=== PATIENT | male | born 1955 | race Caucasian/White ===

== ENCOUNTER 2018-08-01 09:58 | Emergency (ER) | payer OTHER, MEDICAID ==
[~2018-08-01] VITALS: Ht 154.9 cm; Wt 95.0 kg
[~2018-08-01 09:58] MED LIST: [UNRECOGNIZED DRUG - REMARK]
[2018-08-01 10:04] VITALS: BP 138/83
[2018-08-01] MEDS: BACITRACIN ZINC OINT UDPKT TOP ONE (11:01)
== END 2018-08-01 11:52 | disposition home or self-care (01) ==
LOC: ER 09:58
DX: L03.032 Cellulitis of left toe (principal); E11.9 Type 2 diabetes mellitus without complications; I10 Essential (primary) hypertension
CPT/HCPCS: 10060; 99283

== ENCOUNTER 2018-08-03 08:31 | Emergency (ER) | payer BC, MEDICAID ==
[~2018-08-03] VITALS: Ht 154.9 cm; Wt 95.0 kg
[2018-08-03 09:02] VITALS: BP 153/79
== END 2018-08-03 11:34 | disposition home or self-care (01) ==
LOC: ER 08:31
DX: Z48.00 Encounter for change or removal of nonsurgical wound dressing (principal); E11.9 Type 2 diabetes mellitus without complications; I10 Essential (primary) hypertension; Z88.6 Allergy status to analgesic agent
CPT/HCPCS: 99281

== ENCOUNTER 2019-09-12 17:17 | Emergency (ER) | payer MEDICARE, MEDICAID ==
[~2019-09-12] VITALS: Ht 177.8 cm; Wt 95.0 kg
[2019-09-12 17:42] VITALS: BP 165/93
[2019-09-12] MEDS ORDERED: BACITRACIN ZINC OINT UDPKT TOP ONE (18:15)
[2019-09-12] MEDS ORDERED: LIDOCAINE HCL/EPINEPHRINE 1%-EPI 1:100,000 20 ML VIAL INFIL NR (18:15)
[2019-09-12] MEDS ORDERED: LIDOCAINE HCL/EPINEPHRINE 1%-EPI 1:100,000 30 ML VIAL INFIL ONE (18:15)
[2019-09-12] MEDS ORDERED: ACETAMINOPHEN 325MG TABLET PO ONE (18:15)
== END 2019-09-12 20:23 | disposition home or self-care (01) ==
LOC: ER 17:17
DX: S01.81XA Laceration without foreign body of other part of head, initial encounter (principal); R55 Syncope and collapse; Y92.480 Sidewalk as the place of occurrence of the external cause; W01.198A Fall on same level from slipping, tripping and stumbling with subsequent striking against other object, initial encounter; Y93.01 Activity, walking, marching and hiking; I10 Essential (primary) hypertension; E11.9 Type 2 diabetes mellitus without complications
CPT/HCPCS: 12013; 70450; 99284; J3490

== ENCOUNTER 2020-11-13 08:28 | Inpatient (IN) | payer OTHER, MEDICAID ==
[~2020-11-13] VITALS: Ht 165.1 cm; Wt 91.8 kg
[2020-11-13] MEDS ORDERED: MORPHINE SULFATE 4 MG/ML CPJ (NOT FOR IM USE) IV STA (09:06)
[2020-11-13] MEDS ORDERED: ONDANSETRON HCL 4MG/2ML INJ IV STA (09:06)
[2020-11-13 09:35] LABS: BASOPHILS % 0.3 % (0.0-2.0); EOSINOPHILS % 0.4 % (0.0-5.0); HEMOGLOBIN. 14.5 g/dL (14.0-18.0); LYMPHOCYTES % 13.6 % (20.0-50.0); MEAN CORPUSCULAR HEMOGLOBIN 29.7 pg (28.0-32.0); MEAN CORPUSCULAR VOLUME 86.4 fL (80.0-94.0); MONOCYTES % 9.9 % (2.0-8.0); NEUTROPHILS % 75.8 % (40.0-76.0); PLATELET 195 x1000/uL (130-400); RED BLOOD CELL COUNT 4.86 mill/uL (4.7-6.1); RED CELL DISTRIBUTION WIDTH 13.6 % (11.6-14.6)
[2020-11-13 09:38] LABS: CHLORIDE 96 mEq/L (98-107)
[2020-11-13 09:41] LABS: PROTHROMBIN TIME 10.9 sec (9.6-11.0)
[2020-11-13 09:55] LABS: CLARITY URINE CLEAR (CLEAR); COLOR URINE DARK YELLOW (YELLOW); KETONES URINE 1+ (NEGATIVE); LEUKOCYTE ESTERASE URINE NEGATIVE (NEGATIVE); NITRITE URINE NEGATIVE (NEGATIVE); OCCULT BLOOD URINE NEGATIVE (NEGATIVE); PH URINE 6.5 (4.5-8.0); PROTEIN URINE 2+ (NEGATIVE); SPECIFIC GRAVITY URINE 1.032 (1.005-1.030)
[2020-11-13] MEDS ORDERED: MORPHINE SULFATE 4 MG/ML CPJ (NOT FOR IM USE) IV ONE (13:15)
[2020-11-13 17:15] LABS: HEPATITIS B SURFACE ANTIGEN NEGATIVE
[2020-11-13] MEDS: LABETALOL 5MG/ML SYR 20 MG/4 ML SYRINGE IV NR ×2 (21:45→22:03)
[2020-11-13] MEDS ORDERED: ENOXAPARIN 40MG/0.4ML SYR SUBCUT SCH (23:15)
[2020-11-13] MEDS ORDERED: ONDANSETRON HCL 4MG/2ML INJ IV PRN (23:15)
[2020-11-13] MEDS: SODIUM CHLORIDE 0.9% 1,000 ML IV SCH (23:30)
[2020-11-14] VITALS (14 sets, daily range): BP systolic 129–163; BP diastolic 61–87
[2020-11-14] MEDS: AMLODIPINE 5MG TABLET PO SCH ×2 (01:49→10:25)
[2020-11-14] MEDS: LOSARTAN POTASSIUM 25 MG TABLET PO SCH ×2 (01:50→10:24)
[2020-11-14] MEDS: MORPHINE SULFATE 2 MG/ML CPJ (NOT FOR IM USE) IV PRN ×2 (01:50→20:40)
[2020-11-14] MEDS: HYDRALAZINE 20MG/ML VIAL IV PRN (06:40)
[2020-11-14 07:29] LABS: BASOPHILS % 0.4 % (0.0-2.0); HEMATOCRIT. 43.1 % (42.0-52.0); HEMOGLOBIN. 14.9 g/dL (14.0-18.0); LYMPHOCYTES % 8.9 % (20.0-50.0); MEAN CORPUSCULAR HEMOGLOBIN 29.6 pg (28.0-32.0); MEAN CORPUSCULAR VOLUME 85.7 fL (80.0-94.0); MEAN PLATELET VOLUME 9.3 fl (7.4-10.4); MONOCYTES % 10.9 % (2.0-8.0); NEUTROPHILS % 79.8 % (40.0-76.0); PLATELET 183 x1000/uL (130-400); RED BLOOD CELL COUNT 5.03 mill/uL (4.7-6.1); RED CELL DISTRIBUTION WIDTH 13.3 % (11.6-14.6)
[2020-11-14 07:32] LABS: CHLORIDE 96 mEq/L (98-107)
[2020-11-14] MEDS: PANTOPRAZOLE SODIUM 40 MG/VIAL IV SCH (10:24)
[2020-11-14] MEDS: SODIUM CHLORIDE 0.9% 1,000 ML IV SCH ×3 (10:25→23:30)
[2020-11-14] MEDS ORDERED: NALOXONE HCL 0.4MG/ML VIAL IV PRN (12:00)
[2020-11-14] MEDS: ENOXAPARIN 30MG/0.3ML SYR SUBCUT SCH (20:39)
[2020-11-15] VITALS (12 sets, daily range): BP systolic 106–199; BP diastolic 63–103
[2020-11-15] MEDS: MORPHINE SULFATE 2 MG/ML CPJ (NOT FOR IM USE) IV PRN (01:33)
[2020-11-15] MEDS: SODIUM CHLORIDE 0.9% 1,000 ML IV SCH ×2 (03:58→15:44)
[2020-11-15 07:10] LABS: BASOPHILS % 0.2 % (0.0-2.0); EOSINOPHILS % 0.4 % (0.0-5.0); HEMATOCRIT. 38.4 % (42.0-52.0); HEMOGLOBIN. 13.3 g/dL (14.0-18.0); LYMPHOCYTES % 11.8 % (20.0-50.0); MEAN CORPUSCULAR HEMOGLOBIN 29.5 pg (28.0-32.0); MEAN PLATELET VOLUME 8.5 fl (7.4-10.4); MONOCYTES % 10.5 % (2.0-8.0); NEUTROPHILS % 77.1 % (40.0-76.0); PLATELET 202 x1000/uL (130-400); RED BLOOD CELL COUNT 4.51 mill/uL (4.7-6.1); RED CELL DISTRIBUTION WIDTH 13.5 % (11.6-14.6)
[2020-11-15 07:25] LABS: CHLORIDE 99 mEq/L (98-107)
[2020-11-15] MEDS: ENOXAPARIN 30MG/0.3ML SYR SUBCUT SCH ×2 (08:49→21:49)
[2020-11-15] MEDS: PANTOPRAZOLE SODIUM 40 MG/VIAL IV SCH (08:49)
[2020-11-15] MEDS: LOSARTAN POTASSIUM 25 MG TABLET PO SCH (08:49)
[2020-11-15] MEDS: AMLODIPINE 5MG TABLET PO SCH (08:49)
[2020-11-15] MEDS ORDERED: IOHEXOL-350 100 ML BOTTLE ONE (11:50)
[2020-11-15] MEDS ORDERED: DEXTROSE 50% WATER 50ML SYRINGE IV PRN (16:15)
[2020-11-15] MEDS: ACETAMINOPHEN 325MG TABLET PO PRN (16:36)
[2020-11-15] MEDS: HYDRALAZINE 20MG/ML VIAL IV PRN ×2 (16:45→22:46)
[2020-11-15] MEDS: BLOOD SUGAR DIAGNOSTIC STRIP TEST SCH ×2 (16:48→21:47)
[2020-11-15] MEDS: INSULIN LISPRO 100 UNITS/ML SUBCUT SCH ×2 (16:53→21:48)
[2020-11-15] MEDS ORDERED: IPRATROPIUM BROMIDE (0.02%) 0.5MG/2.5ML NEB HHN SCH (22:45)
[2020-11-16] VITALS (12 sets, daily range): BP systolic 136–212; BP diastolic 63–103
[2020-11-16] MEDS ORDERED: ALBUTEROL (0.083%) 2.5MG/3ML NEB HHN SCH
[2020-11-16] MEDS: SODIUM CHLORIDE 0.9% 1,000 ML IV SCH ×2 (00:05→09:25)
[2020-11-16] MEDS: METRONIDAZOLE 500 MG PREMIX 100 ML IV SCH ×3 (04:32→23:06)
[2020-11-16] MEDS: HYDRALAZINE 20MG/ML VIAL IV PRN (04:46)
[2020-11-16] MEDS: MORPHINE SULFATE 2 MG/ML CPJ (NOT FOR IM USE) IV PRN ×2 (05:23→09:29)
[2020-11-16] MEDS: LEVOFLOXACIN 500MG PREMIX 100 ML IV SCH (06:53)
[2020-11-16] MEDS: BLOOD SUGAR DIAGNOSTIC STRIP TEST SCH ×4 (06:53→21:28)
[2020-11-16] MEDS ORDERED: LABETALOL 5MG/ML SYR 20 MG/4 ML SYRINGE IV NR (07:00)
[2020-11-16 07:16] LABS: HEMATOCRIT. 40.1 % (42.0-52.0); HEMOGLOBIN. 13.9 g/dL (14.0-18.0); MEAN CORPUSCULAR HEMOGLOBIN 29.6 pg (28.0-32.0); MEAN CORPUSCULAR VOLUME 85.3 fL (80.0-94.0); PLATELET 245 x1000/uL (130-400); RED CELL DISTRIBUTION WIDTH 13.3 % (11.6-14.6)
[2020-11-16 07:26] LABS: CHLORIDE 100 mEq/L (98-107)
[2020-11-16] MEDS: LOSARTAN POTASSIUM 25 MG TABLET PO SCH (09:27)
[2020-11-16] MEDS: PANTOPRAZOLE SODIUM 40 MG/VIAL IV SCH (09:27)
[2020-11-16] MEDS: AMLODIPINE 5MG TABLET PO SCH (09:28)
[2020-11-16] MEDS: ENOXAPARIN 30MG/0.3ML SYR SUBCUT SCH ×2 (09:28→21:27)
[2020-11-16] MEDS: INSULIN LISPRO 100 UNITS/ML SUBCUT SCH ×4 (09:31→21:27)
[2020-11-16 10:00] LABS: AMYLASE 21 IU/L (25-115)
[2020-11-16] MEDS ORDERED: BUDESONIDE 0.5MG/2ML NEB HHN SCH (10:45)
[2020-11-16] MEDS ORDERED: DEXT 5%/0.9% NACL 1,000 ML IV SCH (10:45)
[2020-11-16 10:57] LABS: INR 1.1; PROTHROMBIN TIME 11.5 sec (9.6-11.0)
[2020-11-16] MEDS: IPRATROPIUM/ALBUTEROL 0.5-3(2.5)MG/3ML NEB HHN SCH ×2 (14:09→14:11)
[2020-11-16] MEDS: BUDESONIDE 0.5MG/2ML NEB HHN SCH (14:11)
[2020-11-16] MEDS ORDERED: METF-414 PO (16:01)
[2020-11-16] MEDS ORDERED: ESCI5TAB16 PO (16:02)
[2020-11-16] MEDS ORDERED: ASPI-1497 PO (16:03)
[2020-11-16] MEDS ORDERED: OXYB5TAB17 PO (16:04)
[2020-11-16] MEDS ORDERED: ATOR40TA70 PO (16:04)
[2020-11-16] MEDS ORDERED: FINA5TAB11 PO (16:05)
[2020-11-16] MEDS ORDERED: LISI-648 MT (16:06)
[2020-11-16] MEDS ORDERED: POTASSIUM CHLORIDE INJ 40 MEQ in DEXT 5% WATER 250 ML IV NR (18:00)
[2020-11-16] MEDS: HYDRALAZINE HCL 25MG TABLET PO SCH (21:26)
[2020-11-17] VITALS (7 sets, daily range): BP systolic 117–165; BP diastolic 53–85
[2020-11-17] MEDS: LEVOFLOXACIN 500MG PREMIX 100 ML IV SCH (05:00)
[2020-11-17] MEDS: METRONIDAZOLE 500 MG PREMIX 100 ML IV SCH ×2 (06:09→14:23)
[2020-11-17] MEDS: BLOOD SUGAR DIAGNOSTIC STRIP TEST SCH ×4 (06:50→21:00)
[2020-11-17] MEDS: INSULIN LISPRO 100 UNITS/ML SUBCUT SCH ×4 (07:20→21:00)
[2020-11-17 07:26] LABS: BASOPHILS % 0.4 % (0.0-2.0); EOSINOPHILS % 3.5 % (0.0-5.0); HEMATOCRIT. 37.2 % (42.0-52.0); HEMOGLOBIN. 12.9 g/dL (14.0-18.0); LYMPHOCYTES % 16.8 % (20.0-50.0); MEAN CORPUSCULAR HEMOGLOBIN 29.8 pg (28.0-32.0); MEAN CORPUSCULAR VOLUME 85.6 fL (80.0-94.0); MEAN PLATELET VOLUME 8.3 fl (7.4-10.4); MONOCYTES % 10.8 % (2.0-8.0); NEUTROPHILS % 68.5 % (40.0-76.0); PLATELET 273 x1000/uL (130-400); RED BLOOD CELL COUNT 4.34 mill/uL (4.7-6.1); RED CELL DISTRIBUTION WIDTH 13.9 % (11.6-14.6)
[2020-11-17 08:14] LABS: CHLORIDE 104 mEq/L (98-107)
[2020-11-17 08:18] LABS: AMYLASE 109 IU/L (25-115)
[2020-11-17] MEDS: ENOXAPARIN 30MG/0.3ML SYR SUBCUT SCH ×2 (09:00→21:00)
[2020-11-17] MEDS: IPRATROPIUM/ALBUTEROL 0.5-3(2.5)MG/3ML NEB HHN SCH ×3 (09:40→23:00)
[2020-11-17] MEDS ORDERED: POTASSIUM CHLORIDE 20MEQ TABLET SR PO NR (10:46)
[2020-11-17] MEDS: LOSARTAN POTASSIUM 25 MG TABLET PO SCH (11:04)
[2020-11-17] MEDS: HYDRALAZINE HCL 25MG TABLET PO SCH ×2 (11:04→21:00)
[2020-11-17] MEDS: AMLODIPINE 10MG TABLET PO SCH (11:05)
[2020-11-17] MEDS: PANTOPRAZOLE SODIUM 40 MG/VIAL IV SCH (11:06)
[2020-11-17] MEDS: DEXT 5%/0.9% NACL KCL 20MEQ/L 1,000 ML IV SCH ×2 (12:43→20:30)
[2020-11-17] MEDS ORDERED: POTASSIUM CHLORIDE INJ 40 MEQ in DEXT 5% WATER 250 ML IV SCH (16:00)
[2020-11-17 16:39] LABS: CHLORIDE 105 mEq/L (98-107)
[2020-11-17] MEDS: BUDESONIDE 0.5MG/2ML NEB HHN SCH (16:44)
[2020-11-17 17:18] LABS: PLATELET ESTIMATE NORMAL
[2020-11-17] MEDS ORDERED: SKIN ADHESIVE 0.7 GM EA TOP ONE (17:30)
[2020-11-17] MEDS ORDERED: LIDOCAINE HCL 1% 20ML VIAL (Pyxis) INJ ONE (17:30)
[2020-11-17] MEDS ORDERED: BUPIVACAINE HCL/PF 0.5% (5MG/ML) 10ML ONE (17:31)
[2020-11-17] MEDS ORDERED: NEOSTIGMINE METHYLSULFATE 1MG/ML 10 ML VIAL ONE (18:37)
[2020-11-17] MEDS ORDERED: GLYCOPYRROLATE 0.2 MG/ML 2ML VIAL ONE ×3 (18:37→21:17)
[2020-11-17] MEDS ORDERED: FENTANYL CITRATE/PF 50MCG/ML 2ML VIAL ONE (18:37)
[2020-11-17] MEDS ORDERED: ROCURONIUM BROMIDE 10MG/ML VIAL 5ML IV ONE (18:37)
[2020-11-17] MEDS ORDERED: MIDAZOLAM HCL 2 MG/2 ML VIAL ONE (18:37)
[2020-11-17] MEDS ORDERED: PROPOFOL 200MG/20ML VIAL IV ONE (18:37)
[2020-11-17] MEDS ORDERED: DEXAMETHASONE 4MG/ML 1ML VIAL ONE (18:42)
[2020-11-17] MEDS ORDERED: ONDANSETRON HCL 4MG/2ML INJ ONE (19:19)
[2020-11-17] MEDS ORDERED: ONDANSETRON HCL 4MG/2ML INJ IV PRN (19:30)
[2020-11-17] MEDS ORDERED: MEPERIDINE HCL/PF 25MG/ML CPJ IV PRN (19:30)
[2020-11-17] MEDS ORDERED: HYDROMORPHONE HCL/PF 2MG/ML CPJ IV PRN (19:30)
[2020-11-17] MEDS: LABETALOL 5MG/ML SYR 20 MG/4 ML SYRINGE IV PRN ×2 (21:56→22:28)
[2020-11-17 23:12] LABS: BG BASE EXCESS -2.8 mmol/L (-2.0-2.0); BG DEOXYHEMOGLOBIN 5.8 % (0.0-5.0); BG FRACTION INSPIRED OXYGEN 70; BG HCO3 ACT 24.3 mmol/L (22.0-26.0); BG METHEMOGLOBIN 0.3 % (0.0-1.5); BG OXYGEN SATURATION 94.2 % (92.0-98.5); BG OXYHEMOGLOBIN 93.9 % (94.0-97.0); BG PCO2 51.1 mmHg (35.0-45.0); BG PH 7.295 (7.350-7.450); BG PO2 81.1 mmHg (75.0-100.0); BG TOTAL HEMOGLOBIN 14.1 g/dL (12.0-18.0); BG VENT MODE VENT - CPAP
[2020-11-18] VITALS (11 sets, daily range): BP systolic 120–162; BP diastolic 69–86
[2020-11-18] MEDS: METRONIDAZOLE 500 MG PREMIX 100 ML IV SCH ×4 (00:40→22:15)
[2020-11-18 02:48] LABS: BG BASE EXCESS -5.1 mmol/L (-2.0-2.0); BG CARBOXYHEMOGLOBIN 0.2 % (0.5-1.5); BG DEOXYHEMOGLOBIN 3.8 % (0.0-5.0); BG FRACTION INSPIRED OXYGEN 50; BG HCO3 ACT 19.9 mmol/L (22.0-26.0); BG METHEMOGLOBIN 0.3 % (0.0-1.5); BG OXYGEN SATURATION 96.2 % (92.0-98.5); BG OXYHEMOGLOBIN 95.7 % (94.0-97.0); BG PCO2 37.1 mmHg (35.0-45.0); BG PH 7.348 (7.350-7.450); BG PO2 86.9 mmHg (75.0-100.0); BG SAMPLE SITE RIGHT RADIAL; BG TOTAL HEMOGLOBIN 13.7 g/dL (12.0-18.0); BG VENT MODE MASK - VENTI
[2020-11-18] MEDS: DEXT 5%/0.9% NACL KCL 20MEQ/L 1,000 ML IV SCH ×3 (04:30→22:13)
[2020-11-18] MEDS: LEVOFLOXACIN 500MG PREMIX 100 ML IV SCH (05:09)
[2020-11-18 06:36] LABS: CHLORIDE 108 mEq/L (98-107)
[2020-11-18 06:37] LABS: HEMATOCRIT. 37.5 % (42.0-52.0); HEMOGLOBIN. 12.9 g/dL (14.0-18.0); MEAN CORPUSCULAR HEMOGLOBIN 29.8 pg (28.0-32.0); MEAN CORPUSCULAR VOLUME 86.5 fL (80.0-94.0); MEAN PLATELET VOLUME 7.9 fl (7.4-10.4); PLATELET 351 x1000/uL (130-400); RED BLOOD CELL COUNT 4.33 mill/uL (4.7-6.1); RED CELL DISTRIBUTION WIDTH 13.8 % (11.6-14.6)
[2020-11-18 06:48] LABS: AMYLASE 37 IU/L (25-115)
[2020-11-18] MEDS: BLOOD SUGAR DIAGNOSTIC STRIP TEST SCH ×4 (07:01→21:00)
[2020-11-18] MEDS: INSULIN LISPRO 100 UNITS/ML SUBCUT SCH ×4 (07:03→22:48)
[2020-11-18] MEDS: IPRATROPIUM/ALBUTEROL 0.5-3(2.5)MG/3ML NEB HHN SCH ×3 (08:13→20:19)
[2020-11-18] MEDS: BUDESONIDE 0.5MG/2ML NEB HHN SCH ×2 (08:14→20:21)
[2020-11-18] MEDS: HYDRALAZINE HCL 25MG TABLET PO SCH ×2 (09:33→22:14)
[2020-11-18] MEDS: PANTOPRAZOLE SODIUM 40 MG/VIAL IV SCH (09:33)
[2020-11-18] MEDS: ENOXAPARIN 30MG/0.3ML SYR SUBCUT SCH ×2 (09:33→22:14)
[2020-11-18] MEDS: LOSARTAN POTASSIUM 25 MG TABLET PO SCH (09:34)
[2020-11-18] MEDS: AMLODIPINE 10MG TABLET PO SCH (09:34)
[2020-11-18 12:17] LABS: PLATELET ESTIMATE NORMAL
[2020-11-18] MEDS: MORPHINE SULFATE 2 MG/ML CPJ (NOT FOR IM USE) IV PRN (22:15)
[2020-11-19] VITALS (12 sets, daily range): BP systolic 128–165; BP diastolic 69–93
[2020-11-19] MEDS: IPRATROPIUM/ALBUTEROL 0.5-3(2.5)MG/3ML NEB HHN SCH ×3 (02:07→14:21)
[2020-11-19] MEDS: METRONIDAZOLE 500 MG PREMIX 100 ML IV SCH ×3 (06:24→21:10)
[2020-11-19] MEDS: DEXT 5%/0.9% NACL KCL 20MEQ/L 1,000 ML IV SCH ×3 (06:24→20:30)
[2020-11-19] MEDS: LEVOFLOXACIN 500MG PREMIX 100 ML IV SCH (06:25)
[2020-11-19] MEDS: BLOOD SUGAR DIAGNOSTIC STRIP TEST SCH ×4 (06:55→21:09)
[2020-11-19] MEDS: BUDESONIDE 0.5MG/2ML NEB HHN SCH (07:48)
[2020-11-19] MEDS: LOSARTAN POTASSIUM 25 MG TABLET PO SCH (08:00)
[2020-11-19] MEDS: ACETAMINOPHEN 325MG TABLET PO PRN (08:00)
[2020-11-19] MEDS: MULTIVITAMINS,THER W-MINERALS TABLET PO SCH (08:00)
[2020-11-19] MEDS: FAMOTIDINE 20MG/2ML VIAL IV SCH ×2 (08:00→21:09)
[2020-11-19] MEDS: ENOXAPARIN 30MG/0.3ML SYR SUBCUT SCH ×2 (08:01→21:09)
[2020-11-19] MEDS: AMLODIPINE 10MG TABLET PO SCH (08:01)
[2020-11-19] MEDS: HYDRALAZINE HCL 25MG TABLET PO SCH ×2 (08:01→21:09)
[2020-11-19] MEDS: INSULIN LISPRO 100 UNITS/ML SUBCUT SCH ×4 (08:02→21:49)
[2020-11-19 10:44] LABS: BASOPHILS % 0.3 % (0.0-2.0); EOSINOPHILS % 0.8 % (0.0-5.0); HEMATOCRIT. 36.6 % (42.0-52.0); HEMOGLOBIN. 12.3 g/dL (14.0-18.0); LYMPHOCYTES % 12.5 % (20.0-50.0); MEAN CORPUSCULAR HEMOGLOBIN 29.6 pg (28.0-32.0); MEAN CORPUSCULAR VOLUME 88.2 fL (80.0-94.0); MONOCYTES % 6.6 % (2.0-8.0); NEUTROPHILS % 79.8 % (40.0-76.0); PLATELET 361 x1000/uL (130-400); RED BLOOD CELL COUNT 4.15 mill/uL (4.7-6.1); RED CELL DISTRIBUTION WIDTH 13.9 % (11.6-14.6)
[2020-11-19 11:10] LABS: CHLORIDE 103 mEq/L (98-107)
[2020-11-20] VITALS (10 sets, daily range): BP systolic 118–153; BP diastolic 70–90
[2020-11-20] MEDS: METRONIDAZOLE 500MG TABLET PO SCH ×2 (05:41→15:11)
[2020-11-20] MEDS: DEXT 5%/0.9% NACL KCL 20MEQ/L 1,000 ML IV SCH (05:42)
[2020-11-20] MEDS ORDERED: LEVOFLOXACIN 500MG TABLET PO SCH (06:00)
[2020-11-20] MEDS: BLOOD SUGAR DIAGNOSTIC STRIP TEST SCH ×3 (07:00→16:50)
[2020-11-20] MEDS: IPRATROPIUM/ALBUTEROL 0.5-3(2.5)MG/3ML NEB HHN SCH (07:42)
[2020-11-20] MEDS ORDERED: LOSA25TA3 PO (08:21)
[2020-11-20] MEDS ORDERED: METR-167 PO (08:21)
[2020-11-20] MEDS ORDERED: LEVO500T89 MT (08:21)
[2020-11-20] MEDS ORDERED: HYDR-4134 PO (08:21)
[2020-11-20] MEDS ORDERED: AMLO10TA80 PO (08:21)
[2020-11-20] MEDS: FAMOTIDINE 20MG/2ML VIAL IV SCH (08:37)
[2020-11-20] MEDS: LOSARTAN POTASSIUM 25 MG TABLET PO SCH (08:38)
[2020-11-20] MEDS: HYDRALAZINE HCL 25MG TABLET PO SCH (08:38)
[2020-11-20] MEDS: AMLODIPINE 10MG TABLET PO SCH (08:38)
[2020-11-20] MEDS: MULTIVITAMINS,THER W-MINERALS TABLET PO SCH (08:38)
[2020-11-20] MEDS: ENOXAPARIN 30MG/0.3ML SYR SUBCUT SCH (08:40)
[2020-11-20] MEDS: INSULIN LISPRO 100 UNITS/ML SUBCUT SCH ×2 (08:41→13:44)
[2020-11-20] MEDS: ACETAMINOPHEN 325MG TABLET PO PRN (11:43)
== END 2020-11-20 17:38 | disposition home or self-care (01) | DRG 853 ==
LOC: ER 08:28 → 3WST 15:45 → ENRESERV 20:06 → EDBEDREQTM 23:34 → EDBEDREQSVC 23:34 → 3WST 11-19 18:24
PROVIDERS: ADMIT Internal Medicine; ATTEND Internal Medicine
PROC: 0FT44ZZ Resection of Gallbladder, Percutaneous Endoscopic Approach (ICD-10-PCS; principal; 2020-11-17)
PROC: 0WJG4ZZ Inspection of Peritoneal Cavity, Percutaneous Endoscopic Approach (ICD-10-PCS; 2020-11-17)
DX: A41.9 Sepsis, unspecified organism (principal); K85.10 Biliary acute pancreatitis without necrosis or infection; K81.0 Acute cholecystitis; J98.11 Atelectasis; K56.7 Ileus, unspecified; K76.0 Fatty (change of) liver, not elsewhere classified; E80.6 Other disorders of bilirubin metabolism; M06.9 Rheumatoid arthritis, unspecified; E11.9 Type 2 diabetes mellitus without complications; E66.9 Obesity, unspecified; E78.5 Hyperlipidemia, unspecified; G47.33 Obstructive sleep apnea (adult) (pediatric); I16.0 Hypertensive urgency; J98.01 Acute bronchospasm; I10 Essential (primary) hypertension; E78.00 Pure hypercholesterolemia, unspecified; Z20.822 Contact with and (suspected) exposure to COVID-19; K82.8 Other specified diseases of gallbladder; M51.36 Other intervertebral disc degeneration, lumbar region; K57.30 Diverticulosis of large intestine without perforation or abscess without bleeding; Z88.0 Allergy status to penicillin; Z87.891 Personal history of nicotine dependence; Z88.8 Allergy status to other drugs, medicaments and biological substances; Z68.33 Body mass index [BMI] 33.0-33.9, adult
CPT/HCPCS: 36415; 36600; 71045; 71275; 74018; 74176; 74181; 76705; 78227; 80048; 80053; 80076; 81003; 82150; 82248; 82375; 82805; 82962; 83036; 83735; 84145; 85007; 85025; 85027; 85379; 86705; 86709; 86803; 87340; 87426; 88304; 93005; 93306; 93970; 94640; 97116; 97162; 99285; A9537; C9113; J0360; J1100; J1650; J1815; J1956; J2175; J2250; J2270; J2405; J2704; J2710; J3010; J3480; J3490; J7030; J7060; J7626; Q9967